=== PATIENT | male | born 1980 | race Caucasian/White ===

== ENCOUNTER 2016-10-12 11:00 | Emergency (ER) | payer SELFPAY ==
[2016-10-12 11:10] VITALS: TEMP 98.2
[2016-10-12] MEDS ORDERED: Sodium Chloride 0.9% 1,000 ML IV STA (11:42)
[2016-10-12 11:59] LABS: HEMATOCRIT 44.7 % (35.0-51.0); MEAN CELL VOLUME 75.9 fl (80.0-94.0); MEAN CORPUSCULAR HEMOGLOBIN 25.4 pg (27.0-31.0); MEAN CORPUSCULAR HGB CONC 33.5 g/dL (33.0-37.0); WHITE BLOOD COUNT 7.9 K/uL (4.8-10.8)
[2016-10-12 12:00] LABS: RBC URINE 40 /hpf (0-3); URINE BACTERIA FEW (<OCC); URINE BILIRUBIN NEGATIVE (NEGATIVE); URINE BLOOD MODERATE (NEGATIVE); URINE CALCIUM OXALATE CRYSTALS FEW /hpf (<OCC); URINE COLOR AMBER (YELLOW); URINE GLUCOSE (UA) NEG (Normal); URINE KETONE TRACE mg/dL (NEGATIVE); URINE LEUKOCYTE ESTERASE NEG Leu/uL (Negative); URINE PROTEIN 100 mg/dL (NEGATIVE); URINE UROBILINOGEN 0.2-1.0 mg/dL (0.2-1.0); WBC URINE 7 /hpf (0-5)
--- NOTE | 2016-10-12 12:03 | ED PDOC ---
HPI: Abdomen Chief Complaint (Nursing): Male Genitourinary Chief Complaint (Provider): Left sided flank pain, since yesterday History Per: Patient History/Exam Limitations: no limitations Onset/Duration Of Symptoms: Days Outside of [place] travel?: No Current Symptoms Are (Timing): Still Present Severity: Severe Pain Scale Rating Of: 9 Location Of Pain/Discomfort: Other Quality Of Discomfort: Sharp, "Pain" Associated Symptoms: Loss Of Appetite, Urinary Symptoms. denies: Fever, Chills , Nausea, Vomiting Additional Complaint(s): Pt states he took a medication from [place] country [place] today (NSAID) but it did not help. He took it at 9am. Pt states he felt similar pain in the past and he was told he had a kidney stone. Pt states yesterday he had pain when urinating but today he is having difficulty urinating. Past Medical History Reviewed: Historical Data, Nursing Documentation, Vital Signs Vital Signs: Last Vital Signs Temp 98.2 F 10/12/16 11:09 Pulse 70 10/12/16 11:09 Resp 16 10/12/16 11:09 BP 133/83 10/12/16 11:09 Pulse Ox 99 10/12/16 12:03 - Medical History PMH: Kidney Stones - Surgical History Surgical History: No Surg Hx - Family History Family History: States: No Known Family Hx - Living Arrangements Living Arrangements: With Family - Social History Current smoker - smoking cessation education provided: No Alcohol: None - Home Medications Home Medications: Ambulatory Orders Medication Instructions Recorded Ciprofloxacin [Cipro] 500 mg PO BID #10 tab 10/12/16 Tamsulosin [Flomax] 0.4 mg PO DAILY #10 cap 10/12/16 oxyCODONE/Acetaminophen [Percocet 1 ea PO Q6H PRN #15 tab 10/12/16 5/325 mg Tab] - Allergies Allergies/Adverse Reactions: Allergies Allergy/AdvReac Type Severity Reaction Status Date / Time No Known Allergies Allergy Verified 10/12/16 11:36 Review of Systems ROS Statement: Except As Marked, All Systems Reviewed And Found Negative Gastrointestinal: Positive for: Other (Flank pain, left ) Genitourinary Male: Positive for: Other Physical Exam - Reviewed Nursing Documentation Reviewed: Yes Vital Signs Reviewed: Yes - Physical Exam Appears: Positive for: Well, Non-toxic, No Acute Distress Head Exam: Positive for: ATRAUMATIC, NORMAL INSPECTION, NORMOCEPHALIC Skin: Positive for: Normal Color, Warm, DRY Eye Exam: Positive for: Normal appearance ENT: Positive for: Normal ENT Inspection Neck: Positive for: Normal, Painless ROM Cardiovascular/Chest: Positive for: Regular Rate, Rhythm Respiratory: Positive for: CNT, Normal Breath Sounds Gastrointestinal/Abdominal: Positive for: Normal Exam, Bowel Sounds, Soft Back: Positive for: Normal Inspection Extremity: Positive for: Normal ROM Neurologic/Psych: Positive for: Alert, Oriented - Laboratory Results Result Diagrams: 10/12/16 11:40 10/12/16 11:40 - ECG O2 Sat by Pulse Oximetry: 99 Medical Decision Making Medical Decision Makin:20 - Pt states he needs to leave. Discussed size of stone and location. If stones does not pass to f.u with urology. Disposition - Clinical Impression Clinical Impression: Kidney stone on left side - Patient ED Disposition Is Patient to be Admitted: No Counseled Patient/Family Regarding: Diagnosis, Need For Followup, Rx Given - Disposition Referrals: [facility] [Outside] Isidoro Richey MD [Medical Doctor] - Disposition: Routine/Home Disposition Time: 13:23 Condition: GOOD Prescriptions: Ciprofloxacin [Cipro] 500 mg PO BID #10 tab Tamsulosin [Flomax] 0.4 mg PO DAILY #10 cap oxyCODONE/Acetaminophen [Percocet 5/325 mg Tab] 1 ea PO Q6H PRN #15 tab PRN Reason: Pain, Severe (8-10) Instructions: Kidney Stones (ED)
[2016-10-12 12:08] LABS: ALB/GLOB RATIO 1.3 (1.0-2.1); ALKALINE PHOSPHATASE 65 U/L (38-126); ALT/SGPT 51 U/L (21-72); AST/SGOT 37 U/L (17-59); BILIRUBIN,TOTAL 0.7 mg/dl (0.2-1.3); BLOOD UREA NITROGEN 15 mg/dl (9-20); CALCIUM 9.6 mg/dL (8.4-10.2); CARBON DIOXIDE 28 mmol/L (22-30); CHLORIDE 103 mmol/L (98-107); GFR AFRICAN-AMERICAN > 60; GLUCOSE,RANDOM 115 mg/dL (75-110); POTASSIUM 4.4 MMOL/L (3.6-5.0); SODIUM 146 mmol/l (132-148)
--- NOTE | 2016-10-12 13:16 | CT ---
PROCEDURE: CT Abdomen and Pelvis without contrast. HISTORY: Left flank pain, history of stones COMPARISON: None. TECHNIQUE: Contiguous axial images of the abdomen and pelvis. No oral or IV contrast given. Coronal and Sagittal reformats generated. Please note that due to lack of intravenous and oral contrast, evaluation of soft tissue structures and bowel is limited. Radiation dose: Total exam DLP = 1201.1 mGy-cm. This CT was performed using one or more of the following dose reduction techniques: Automated exposure control, adjustment of the mA and/or KV according to patient size, and/or use of iterative reconstruction technique. FINDINGS: LOWER THORAX: Mild bibasilar atelectatic changes noted. Upper limits of normal size of the heart. No significant pericardial effusion. Mild coronary arterial calcifications seen. Small hiatal hernia. LIVER: Unremarkable. No gross lesion or ductal dilatation. GALLBLADDER AND BILE DUCTS: Unremarkable. PANCREAS: Unremarkable. No mass. No ductal dilatation. SPLEEN: Splenomegaly. ADRENALS: Unremarkable. KIDNEYS AND URETERS: Edematous left kidney. Mild hydroureteronephrosis. Mild to moderate periureteral stranding. In the left ureterovesicular junction, there is a 4 x 4 x 6 radiopaque calculus. Underlying infection cannot be excluded. BLADDER: Near completely collapsed limiting evaluation. REPRODUCTIVE: Unremarkable. APPENDIX: Unremarkable. BOWEL: No bowel obstruction. Otherwise limited evaluation due to lack of oral contrast. Few scattered small mesenteric lymph nodes. Collapsed colon limiting evaluation. PERITONEUM: Unremarkable. No fluid collection. No free air. LYMPH NODES: Small gastrohepatic ligament, retroperitoneal and pelvic sidewall lymphadenopathy, nonspecific. VASCULATURE: Unremarkable. No aortic aneurysm. BONES: No fracture or destructive lesion. OTHER FINDINGS: Bilateral gynecomastia. IMPRESSION: 4 x 4 x 6 millimeter radiopaque calculus in the left ureterovesicular junction. Associated mild hydroureteronephrosis and periureteral stranding. Mild left perinephric stranding and edema in the left kidney. Underlying infection cannot be excluded. Other findings as above. Findings were discussed with ALETA Hernandez at approximately 1:20 p.m. on 10/12/2016.
[2016-10-12 13:33] VITALS: BP 130/80; PULSE 69; RESP 18; O2SAT 98
== END 2016-10-12 13:35 | disposition home or self-care (01) ==
LOC: H.ER 11:00
DX: N20.0 Calculus of kidney (principal); R10.9 Unspecified abdominal pain
CPT/HCPCS: 74176; 80053; 81003; 85027; 87086; 96360; 99285; J2270; J7040